=== PATIENT | female | born 1955 ===

== ENCOUNTER 2017-03-19 16:31 | Emergency (ER) | payer OTHER ==
[2017-03-19 16:36] VITALS: BP 137/78; PULSE 75; RESP 16; TEMP 98; O2SAT 97
--- NOTE | 2017-03-19 16:51 | ED PDOC ---
Lower Extremity Pain/Injury Time Seen by Provider: 03/19/17 16:47 Chief Complaint (Nursing): Lower Extremity Problem/Injury Chief Complaint (Provider): Lower extremity problem History Per: Patient History/Exam Limitations: no limitations Onset/Duration Of Symptoms: Days (x2 weeks) Current Symptoms Are (Timing): Still Present Additional Complaint(s): Alyssa Gomez is a 61 year old female, with no past medical history, who presents to the emergency department complaining of having pain on b/l ankles associated with swelling and pain with ambulation onset for 2 weeks. Patient reports pain is worst on medial side of right ankle. He states pain has worsen in the past couple of days. She took tylenol with minimal relief. She denies any recent trauma or injury, no fever, chills, nausea or vomit. No further medical complaints. PMD: None provided. Past Medical History Reviewed: Historical Data, Nursing Documentation, Vital Signs Vital Signs: Last Vital Signs Temp 98.0 F 03/19/17 16:34 Pulse 75 03/19/17 16:34 Resp 16 03/19/17 16:34 BP 137/78 03/19/17 16:34 Pulse Ox 97 03/19/17 16:34 - Family History Family History: States: Unknown Family Hx - Social History Current smoker - smoking cessation education provided: No Alcohol: None Drugs: Denies - Home Medications Home Medications: Ambulatory Orders Medication Instructions Recorded Diclofenac Sodium 1 - 2 gm TP TID #1 gel..gram. 03/19/17 - Allergies Allergies/Adverse Reactions: Allergies Allergy/AdvReac Type Severity Reaction Status Date / Time No Known Allergies Allergy Verified 03/19/17 16:33 Review of Systems ROS Statement: Except As Marked, All Systems Reviewed And Found Negative Constitutional: Negative for: Fever, Chills Gastrointestinal: Negative for: Nausea, Vomiting Musculoskeletal: Positive for: Foot Pain (b/l foot pain and swelling with ambulation) Physical Exam - Reviewed Nursing Documentation Reviewed: Yes Vital Signs Reviewed: Yes - Physical Exam Appears: Positive for: Well, Non-toxic, No Acute Distress Head Exam: Positive for: ATRAUMATIC, NORMAL INSPECTION, NORMOCEPHALIC Skin: Positive for: Normal Color, Warm, Dry Eye Exam: Positive for: Normal appearance Neck: Positive for: Normal, Painless ROM, Supple Respiratory: Positive for: Normal Breath Sounds. Negative for: Respiratory Distress Extremity: Positive for: Tenderness (to medial malleolus of right ankle more so than left ), Other (pes planus noted. ). Negative for: Swelling (b/l ) Neurologic/Psych: Positive for: Alert, Oriented - ECG O2 Sat by Pulse Oximetry: 97 (RA) Pulse Ox Interpretation: Normal Medical Decision Making Medical Decision Making: Initial Impression: b/l ankle pain Initial Plan: --Ankle right 3 views routine [RAD] --Foot right 3 views routine [RAD] --reevaluation no evidence of fracture to foots pt will be given surgical shoe and f.u in podiatry clinic. Scribe Attestation: Documented by Ifeanyi Stringer, acting as a scribe for Katherin LYN. Provider Scribe Attestation: All medical record entries made by the Scribe were at my direction and personally dictated by me. I have reviewed the chart and agree that the record accurately reflects my personal performance of the history, physical exam, medical decision making, and the department course for this patient. I have also personally directed, reviewed, and agree with the discharge instructions and disposition. Disposition - Clinical Impression Clinical Impression: Foot pain - Patient ED Disposition Is Patient to be Admitted: No Counseled Patient/Family Regarding: Studies Performed, Diagnosis, Need For Followup - Disposition Referrals: Podiatry Clinic [Outside] Disposition: Routine/Home Disposition Time: 18:12 Condition: STABLE Prescriptions: Diclofenac Sodium 1 - 2 gm TP TID #1 gel..gram. Instructions: Arthralgia (ED), Tendinitis (ED) Print Language: ANGUILLAN
--- NOTE | 2017-03-20 10:22 | RAD ---
PROCEDURE: Right Ankle Radiographs. HISTORY: ankle injury COMPARISON: Comparison made with radiographs of the right foot dated 03/18/2017 FINDINGS: BONES: Tiny elliptical shaped corticated bony density within the soft tissues subjacent to the inferior tip of the medial malleolus may represent some old posttraumatic mineralization or tiny unfused avulsion fracture injury. . There is mild overlying soft medial and to a lesser degree lateral soft tissue swelling. No evidence of acute fracture seen. Talar dome intact. There is mild overlying soft tissue swelling. Minor lateral soft tissue swelling. JOINTS: Normal. No osteoarthritis. Ankle mortise maintained. Talar dome intact SOFT TISSUES: As above. OTHER FINDINGS: None. IMPRESSION: No evidence of acute displaced fracture nor dislocation. Tiny elliptical shaped corticated bony density within the soft tissues subjacent to the inferior tip of the medial malleolus may represent some old posttraumatic mineralization or tiny unfused avulsion fracture injury. . There is mild overlying soft tissue swelling medial greater than lateral. If symptoms persist or occult fracture suspected clinically recommend repeat radiographs in 5-10 days as most fractures should become radiographically evident this timeframe.
--- NOTE | 2017-03-20 14:55 | RAD ---
PROCEDURE: Right Foot Radiographs. HISTORY: Unspecified right foot injury. COMPARISON: None. FINDINGS: BONES: Fracture. Plantar calcaneal spur. JOINTS: Mild degenerative changes. Mild hallux valgus deformity. SOFT TISSUES: Normal. OTHER FINDINGS: None. IMPRESSION: No acute findings related to/accounting for the clinical presentation.
== END 2017-03-19 18:35 | disposition home or self-care (01) ==
LOC: H.ER 16:31
DX: M79.672 Pain in left foot (principal); M79.671 Pain in right foot

== ENCOUNTER 2018-03-12 09:54 | Day surgery (SDC) | payer OTHER ==
[2018-03-12 10:46] VITALS: BMI 31.3
[2018-03-12] MEDS ORDERED: Lactated Ringer's 500 ML IV ONE (10:48)
[2018-03-12] MEDS ORDERED: Propofol 10 mg/ml Inj (20 ML) ONE (12:11)
[2018-03-12 12:45] VITALS: PULSE 72; RESP 24; TEMP 98; O2SAT 98
[2018-03-12 13:03] VITALS: BP 102/50
== END 2018-03-12 13:43 | disposition home or self-care (01) ==
LOC: H.ENDO 09:54
PROVIDERS: ATTEND Internal Medicine Gastroenterology
DX: R19.5 Other fecal abnormalities (principal); I10 Essential (primary) hypertension; M19.90 Unspecified osteoarthritis, unspecified site; K64.8 Other hemorrhoids; K57.30 Diverticulosis of large intestine without perforation or abscess without bleeding
CPT/HCPCS: 45378; J2704; J7120